=== PATIENT | male | born 1990 | race Caucasian/White ===

== ENCOUNTER 2018-03-01 16:08 | Inpatient (IN) | payer BC ==
[~2018-03-01] VITALS: Ht 170.2 cm; Wt 85.0 kg
[2018-03-01 16:39] VITALS: BP 110/68; PULSE 90
[2018-03-01 16:46] LABS: BASO % 0.7 % (0.0-2.0); EOS # 0.3 (0.0-0.7); EOS % 5.1 % (0-4.0); GRAN # 3.8 (1.4-6.5); GRAN % 66.7 % (42.2-75.2); HEMATOCRIT 48.1 % (42.0-52.0); HEMOGLOBIN 16.3 g/dl (13.5-18.0); LYMPH # 1.2 (1.2-3.4); MEAN CELL VOLUME 91 fl (80.0-100.0); MEAN CORPUSCULAR HEMOGLOBIN 31 pg (27.0-31.0); MEAN CORPUSCULAR HGB CONC 34 g/dl (33.0-37.0); MONO # 0.4 (0.1-0.6); MONO % 6.1 % (1.7-9.3); PLATELET COUNT 237 K/mm3 (130-400); RED BLOOD COUNT 5.28 M/mm3 (4.20-5.60)
[2018-03-01 17:00] LABS: ALBUMIN 4.5 gm/dL (3.5-5.0); BILIRUBIN,TOTAL 0.5 mg/dL (0.0-1.0); C-REACTIVE PROTEIN 0.6 mg/dL (0.0-0.9); CALCIUM 9.3 mg/dL (8.4-10.2); CREATININE, serum 1.04 mg/dL (0.66-1.25); POTASSIUM 3.4 mmol/L (3.4-5.0); TOTAL PROTEIN 7.4 gm/dL (6.4-8.2)
[2018-03-01 17:14] LABS: PROLACTIN 63.7 ng/mL (3.7-17.9)
[2018-03-01 19:08] LABS: MAGNESIUM 2.3 mg/dL (1.6-2.3)
[2018-03-01 19:11] LABS: ALCOHOL(ethanol),MEDICAL < 10 mg/dL
[2018-03-01 19:23] LABS: TROPONIN-I < 0.012 ng/mL (0.000-0.034)
[2018-03-01 20:04] VITALS: BP 124/55; PULSE 88; TEMP 98.1
[2018-03-01 20:05] VITALS: BP 124/55; PULSE 88; TEMP 98.1
--- NOTE | 2018-03-01 20:30 | NUR ---
Patient arrived to the floor from the ER at 1915 per bed cart. Admission B and assessment completed. Patient is A&O x 4. VSS, on room air. Tele maintained from the ER. Denies any pain. Neurochecks WNL. Seizure precautions in place. Patient tolerated meal this evening with no c/o nausea. INT to left forearm and IVF initiated per orders. BLE scds applied. Denies any concerns or needs at this time. Bed is in a low position with call light in reach.
--- NOTE | 2018-03-01 23:53 | NUR ---
Patient has been sitting up in bed visiting with his mother who is at bedside now for the night. Denies any concerns or needs.
[2018-03-02 00:05] VITALS: BP 104/49; PULSE 76; TEMP 97.7
[2018-03-02 03:12] VITALS: BP 116/55; PULSE 67; TEMP 97.7
[2018-03-02 03:35] LABS: COLLECTION METHOD CLEAN CATCH
[2018-03-02 03:45] LABS: MUCOUS Present /lpf; PH 6 (5-8); SQUAMOUS EPITHELIAL None Seen /hpf; URINE APPEARANCE Clear; URINE BACTERIA None Seen /hpf; URINE BILIRUBIN Negative (NEGATIVE); URINE BLOOD Negative (NEGATIVE); URINE COLOR Yellow; URINE GLUCOSE Negative (NEGATIVE); URINE KETONE Negative (NEGATIVE); URINE LEUKOCYTE ESTERASE Negative (NEGATIVE); URINE NITRATE Negative (NEGATIVE); URINE PROTEIN(semi-quant) Negative (NEGATIVE); URINE RBC 0-2 /hpf; URINE UROBILINOGEN Negative (NEGATIVE)
[2018-03-02 03:49] LABS: TRICYCLIC ANTIDEPRESS URINE NEGATIVE
--- NOTE | 2018-03-02 04:56 | NUR ---
Patient has rested well through the night. VSS. Tele maintained. Neuro checks WNL. Up with standby assist, gait steady. UA sent to lab this morning. Continues to deny any nausea. Mom remains at bedside. Denies any concerns or needs, call light within reach.
[2018-03-02 07:45] LABS: BASO % 0.7 % (0.0-2.0); EOS # 0.4 (0.0-0.7); EOS % 5.8 % (0-4.0); GRAN # 3.7 (1.4-6.5); HEMATOCRIT 40.9 % (42.0-52.0); LYMPH # 1.5 (1.2-3.4); MEAN CELL VOLUME 92 fl (80.0-100.0); MEAN CORPUSCULAR HEMOGLOBIN 31 pg (27.0-31.0); MEAN CORPUSCULAR HGB CONC 34 g/dl (33.0-37.0); MONO # 0.4 (0.1-0.6); MONO % 7.3 % (1.7-9.3); PLATELET COUNT 194 K/mm3 (130-400); RED BLOOD COUNT 4.45 M/mm3 (4.20-5.60); REDCELL DISTRIBUTION WIDTH-CV 12.2 % (11.5-14.5)
[2018-03-02 07:50] LABS: CALCIUM 8.3 mg/dL (8.4-10.2); CREATININE, serum 0.96 mg/dL (0.66-1.25)
[2018-03-02 08:00] LABS: HEMOGLOBIN 13.8 g/dl (13.5-18.0)
--- NOTE | 2018-03-02 08:00 | NUR ---
PATIENT IS DROWSY THIS MORNING AND RESTING IN BED. PATIENT IS OTHERWISE A&O. VSS. TELE IN PLACE. BOWEL SOUNDS ACTIVE ALL FOUR QUADRANTS. PATIENT TOLERATING CLEAR LIQUIDS WITHOUT ANY COMPLAINTS OF N/V. POSITIVE PEDAL PULSES EQUAL BILATERALLY. IV FLUIDS INFUSING TO LEFT AC IV VIA PUMP. PATIENT DENIES ANY PAIN, DIZZINESS OR WEAKNESS THIS MORNING. SIEZURE PRECAUTIONS IN PLACE. MOTHER PRESENT AT THE BEDSIDE. CALL LIGHT WITHIN REACH. PATIENT DENIES ANY NEEDS AT THIS TIME.
[2018-03-02 08:25] VITALS: BP 108/53; PULSE 83; TEMP 97.9
--- NOTE | 2018-03-02 08:50 | NUR ---
PATIENT TAKEN TO MRI FOR SCAN VIA WHEELCHAIR. WILL WAIT FOR PATIENT ARRIVAL BACK TO ROOM 322-2.
--- NOTE | 2018-03-02 09:25 | NUR ---
PATIENT ARRIVED BACK TO ROOM 322-2 VIA WHEELCHAIR FROM MRI.
[2018-03-02 11:19] VITALS: BP 100/48; PULSE 78; TEMP 98.2
--- NOTE | 2018-03-02 11:30 | NUR ---
Initial visit; Patient thanked [employer] for offering God's blessings and keeping him in her prayers.
--- NOTE | 2018-03-02 13:29 | NUR ---
SW attended clinical rounding and met with patient and mother to discuss discharge planning. Patient lives independently in [place] and works at [employer]. He doesnt have a PCP or preferred Pharmacy at this time. Patients mother Gosia is his emergancy contact and with him in the room. There are no anticipated discharge needs at this time.
[2018-03-02 15:26] VITALS: BP 111/57; PULSE 73; TEMP 98.7
--- NOTE | 2018-03-02 15:40 | NUR ---
PATIENT TAKEN DOWN FOR EEG VIA WHEELCHAIR. WILL WAIT FOR PATIENT TO RETURN TO ROOM 322-2.
[2018-03-02 19:50] VITALS: BP 125/63; PULSE 77; TEMP 98
--- NOTE | 2018-03-02 20:30 | NUR ---
Assessment completed. Patient is A&O x 4. VSS, on room air. Denies any pain. Tolerating diet with no c/o nausea. Voiding with no difficulities. Neuro checks WNL. Seizure precautions maintained. Up with standby assist with a steady gait. Denies any concerns or needs, call light is within reach.
[2018-03-03] VITALS: BP 115/72; PULSE 79; TEMP 98.1
[2018-03-03 04:57] VITALS: BP 112/47; PULSE 81; TEMP 98.3
--- NOTE | 2018-03-03 05:37 | NUR ---
Patient has rested well through the night. VSS. Tele maintained. Continues to deny any pain. Neuro checks WNL. Seizure precautions maintained. IVF remain infusing with Keppra at this time. Patient voices no concerns or needs this morning. Bed remains in a low position with call light in reach.
[2018-03-03 08:00] VITALS: BP 101/52; PULSE 73; TEMP 98
--- NOTE | 2018-03-03 08:00 | NUR ---
PATIENT DROWSY AND RESTING IN BED THIS MORNING. PATIENT EASILY AROUSABLE. PATIENT IS A&O. VSS. TELE IN PLACE. BOWEL SOUNDS ACTIVE ALL FOUR QUADRANTS. PATIENT TOLERATING FOOD & LIQUIDS WITHOUT ANY COMPLAINTS OF N/V. POSITIVE PEDAL PULSES EQUAL BILATERALLY. SCD'S TO BLE. IV FLUIDS INFUSING TO LEFT AC IV VIA PUMP. NO SEIZURE ACTIVITY NOTED. PATIENT STATES THAT HE HAS SOME DIZZINESS THIS MORNING. PATIENT DENIES COMPLAINTS OF PAIN. CALL LIGHT WITHIN REACH. NO OTHER NEEDS AT THIS TIME.
[2018-03-03] MEDS ORDERED: KEPPRA1000 MG PO (09:37)
--- NOTE | 2018-03-03 10:05 | NUR ---
SW met with patient during clinical rounding. Patient is dc home today with no unmet discharge needs.
[2018-03-03 11:53] VITALS: BP 118/59; PULSE 84; TEMP 98.4
--- NOTE | 2018-03-03 14:30 | NUR ---
LEFT AC INT DC'D PER PENDING DISCHARGE. PATIENT TOLERATED WELL. DISCHARGE INSTRUCTIONS REVIEWED WITH PATIENT AND MOTHER. ALL QUESTIONS ANSWERED. PATIENT PERSONAL BELONGINGS GATHERED. PATIENT TAKEN TO PERSONAL VEHICLE VIA WHEELCHAIR BY SURGICAL STAFF. PATIENT DISCHARGED.
== END 2018-03-03 14:30 | disposition home or self-care (01) | DRG 101 ==
LOC: COL.ER 16:08 → SURG 18:07
PROVIDERS: Emergency Medicine; Nurse Practitioner Family
DX: G40.209 Localization-related (focal) (partial) symptomatic epilepsy and epileptic syndromes with complex partial seizures, not intractable, without status epilepticus (principal); J32.0 Chronic maxillary sinusitis; J32.2 Chronic ethmoidal sinusitis
CPT/HCPCS: 99239; A9585; J1953; J7030

== ENCOUNTER 2019-05-13 02:11 | Emergency (ER) | payer BC ==
[~2019-05-13] VITALS: Ht 172.7 cm; Wt 84.1 kg
[~2019-05-13 02:11] MED LIST: KEPPRA1000 MG PO
[2019-05-13 02:17] VITALS: TEMP 100.1
[2019-05-13 03:26] LABS: BASO % 0.5 % (0.0-2.0); EOS % 0.7 % (0-4.0); GRAN # 3.5 (1.4-6.5); GRAN % 79.8 % (42.2-75.2); HEMATOCRIT 42.9 % (42.0-52.0); HEMOGLOBIN 14.3 g/dl (13.5-18.0); LYMPH # 0.3 (1.2-3.4); LYMPH % 6.4 % (20.0-51.0); MEAN CELL VOLUME 92 fl (80.0-100.0); MEAN CORPUSCULAR HEMOGLOBIN 31 pg (27.0-31.0); MEAN CORPUSCULAR HGB CONC 33 g/dl (33.0-37.0); MEAN PLATELET VOLUME 9.9 fl (7.4-10.4); MONO # 0.5 (0.1-0.6); MONO % 12.4 % (1.7-9.3); PLATELET COUNT 181 K/mm3 (130-400); RED BLOOD COUNT 4.69 M/mm3 (4.20-5.60); REDCELL DISTRIBUTION WIDTH-CV 11.7 % (11.5-14.5)
[2019-05-13 03:37] LABS: BILIRUBIN,TOTAL 0.6 mg/dL (0.0-1.0); CALCIUM 8.2 mg/dL (8.4-10.2); CREATININE, serum 1.02 (0.66-1.25); POTASSIUM 3.7 mmol/L (3.4-5.0); TOTAL PROTEIN 6.8 gm/dL (6.4-8.2)
[2019-05-13] MEDS ORDERED: TAMIFLU 75MG75 MG PO (04:25)
[2019-05-13 05:00] VITALS: BP 118/77; PULSE 97
== END 2019-05-13 05:00 | disposition home or self-care (01) ==
LOC: COL.ER 02:11
PROVIDERS: Emergency Medicine
DX: R55 Syncope and collapse (principal); J10.1 Influenza due to other identified influenza virus with other respiratory manifestations; G40.909 Epilepsy, unspecified, not intractable, without status epilepticus
CPT/HCPCS: J1200; J1885; J7030

== ENCOUNTER 2021-08-01 04:14 | Emergency (ER) | payer OTHER ==
[~2021-08-01] VITALS: Ht 165.1 cm; Wt 79.5 kg
[~2021-08-01 04:14] MED LIST changes: +TAMIFLU 75MG75 MG PO
[2021-08-01 04:16] VITALS: TEMP 98.9
[2021-08-01 04:47] LABS: BASO % 0.5 % (0.0-2.0); EOS % 0.5 % (0.0-4.0); GRAN # 3.1 K/mm3 (1.4-6.5); GRAN % 77.6 % (42.2-75.2); HEMATOCRIT 44.5 % (42.0-52.0); HEMOGLOBIN 15.5 g/dl (13.5-18.0); LYMPH # 0.4 K/mm3 (1.2-3.4); MEAN CELL VOLUME 89 fl (80.0-100.0); MEAN CORPUSCULAR HEMOGLOBIN 31 pg (27-31); MEAN CORPUSCULAR HGB CONC 35 g/dl (33.0-37.0); MEAN PLATELET VOLUME 9.8 fl (7.4-10.4); MONO # 0.5 K/mm3 (0.1-0.6); MONO % 12.2 % (1.7-9.3); PLATELET COUNT 155 K/mm3 (130-400); RED BLOOD COUNT 5.01 M/mm3 (4.20-5.60); REDCELL DISTRIBUTION WIDTH-CV 12.1 % (11.5-14.5)
[2021-08-01 05:10] LABS: ALBUMIN 3.9 gm/dL (3.5-5.0); BILIRUBIN,TOTAL 1.5 mg/dL (0.2-1.2); CALCIUM 8.9 mg/dL (8.4-10.2); CREATININE, serum 1.36 mg/dL (0.72-1.25); POTASSIUM 3.7 mmol/L (3.5-4.5); TOTAL PROTEIN 6.7 gm/dL (6.2-8.1)
[2021-08-01 05:38] LABS: MONOSCREEN NEGATIVE
[2021-08-01 08:00] LABS: C-REACTIVE PROTEIN 5.58 mg/dL (0.00-0.50)
[2021-08-01 09:11] LABS: COLLECTION METHOD CLEAN CATCH
[2021-08-01 09:25] LABS: MUCOUS Present (NOT PRESENT); PH 5 (5-8); SQUAMOUS EPITHELIAL None Seen /hpf (0-10); URINE APPEARANCE Clear (CLEAR/HAZY); URINE BACTERIA None Seen /hpf (NONE SEEN); URINE BILIRUBIN Negative (NEGATIVE); URINE BLOOD Negative (NEGATIVE); URINE COLOR Yellow (YELLOW); URINE GLUCOSE Negative (NEGATIVE); URINE KETONE Negative (NEGATIVE); URINE LEUKOCYTE ESTERASE Negative (NEGATIVE); URINE NITRATE Negative (NEGATIVE); URINE PROTEIN(semi-quant) Negative (NEGATIVE); URINE RBC 20-50 /hpf (0-2); URINE UROBILINOGEN >=4.0 (NEGATIVE)
[2021-08-01 11:14] VITALS: BP 124/70; PULSE 77
== END 2021-08-01 11:14 | disposition home or self-care (01) ==
LOC: COL.ER 04:14
PROVIDERS: Emergency Medicine
DX: B34.9 Viral infection, unspecified (principal); E86.0 Dehydration; R79.89 Other specified abnormal findings of blood chemistry; Z20.822 Contact with and (suspected) exposure to COVID-19; Z28.311 Partially vaccinated for COVID-19
CPT/HCPCS: J1885; J2405; J7030